=== PATIENT | female | born 1970 | race Caucasian/White ===

== ENCOUNTER 2016-08-07 13:33 | Emergency (ER) | payer OTHER ==
--- OUTSIDE RECORDS SUMMARY | 2016-08-07 14:28 | XMS REPORT | Continuity of Care Document ---
:1970 Author Organization [facility] ([facility]) Address [address] [place] [address] Phone [phone] Care Team Providers Name Role Phone Daylin Rivera Primary Care Provider [phone] Source Comments This disclosure is being made pursuant to the Care Everywhere program, applicable federal and state laws, and may not contain all informaitonavailable regarding this patient.[facility] ([facility]) Active Allergies and Adverse Reactions Allergen Noted Date Severity Reactions Comments Chlorpromazine 01/05/2009 Pruritus Morphine 01/05/2009 Pruritus Tramadol 01/05/2009 Pruritus Current Medications Prescription Sig. Disp. Refills Start Date End Date Status calcium take 1 Tab by mouth 3 Active carbonate-vitamin D times daily. (CALCIUM 500+D) 1,250 mg-200 unit per tablet escitalopram Take 40 mg by mouth at Active (LEXAPRO) 20 mg bedtime. tablet estrogens conjugated, take 1.25 mg by mouth Active synthetic, (CENESTIN) daily. 1.25 mg tablet omeprazole (PRILOSEC) take 20 mg by mouth Active 20 mg capsule daily. QUEtiapine (SEROQUEL) take 300 mg by mouth at Active 100 mg tablet bedtime. Ascorbic Acid take 1 Tab by mouth Active (VITAMIN C) 1,000 mg daily. With renetta hip Tab nabumetone (RELAFEN) Take 500 mg by mouth 2 Active 500 mg tablet times daily. Indications: Osteoarthritis QUEtiapine (SEROQUEL) Take 400 mg by mouth at Active 400 mg tablet bedtime. Chromium Picolinate Take 1 Cap by mouth Active 500 mcg Cap daily. Helps carbohydrate/fat metabolism fluticasone (FLONASE) use 1 [place] into each Active 50 mcg/Actuation nostril daily. nasal spray Indications: Allergic Rhinitis Guaifenesin (MUCUS Take 400 mg by mouth Active RELIEF) 400 mg Tab daily. Indications: Cold Symptoms benzonatate Take 100 mg by mouth 3 Active (TESSALON) 100 mg times daily as needed. capsule Carica Papaya (PAPAYA Take 1 Tab by mouth 3 Active ENZYME) Chew times daily after meals as needed. IBS treatment hydrOXYzine pamoate Take 25 mg by mouth 3 Active 25 mg capsule times daily as needed. Indications: muscle relaxant Active Problems Problem Noted Date S/P cholecystectomy 01/05/2009 Depression with anxiety 01/05/2009 Reflux esophagitis 01/05/2009 Overview: EGD 07/26/08 Bacterial overgrowth syndrome 01/05/2009 Asthma, intermittent 01/05/2009 S/P KISHAN (total abdominal hysterectomy) 01/05/2009 IBS (irritable bowel syndrome) 01/05/2009 Status post lumbar surgery 01/05/2009 Cigarette smoker 01/05/2009 Obesity 01/05/2009 Overview: BMI 30 Resolved Problems Problem Noted Date Resolved Date DENICE (obstructive sleep apnea) 01/05/2009 01/05/2009 Full dentures 01/05/2009 01/05/2009 Social History Tobacco Use Types Packs/Day Years Used Date Current Every Day Smoker Comments:no interest in quiting Alcohol Use Drinks/Week oz/Week Comments No Last Filed Vital Signs Vital Sign Reading Time Taken Blood Pressure 144/92 06/04/2010 2:03 PM CDT Pulse 80 06/04/2010 2:03 PM CDT Temperature 36.5 C (97.7 F) 01/05/2009 7:42 AM [employer] [employer] Respiratory Rate - - Height 1.64 m (5' 4.57") 06/04/2010 2:03 PM CDT Weight 84 kg (185 lb 3 oz) 06/04/2010 2:03 PM CDT Body Mass Index 31.23 06/04/2010 2:03 PM CDT Oxygen Saturation - - Plan of Care Health Maintenance Due Date Last Done Comments Hepatitis B Vaccine (1 of 3 - Primary Series) 1970 Tdap Vaccine 06/25/1983 Lipid Disorder Screening 1990 MMR Vaccine 1990 Td Vaccine 1990 Pneumococcal Vaccine (1 of 1 - PPSV23) 06/25/1991 Cervical Cancer Screening 2002 Mammogram 2012 Influenza Vaccine: Seasonal (#1) 10/01/2015 Results from Last 3 Months Not on file
--- NOTE | 2016-08-07 15:24 | ERNOTE ---
Back Pain ER HPI Date of Service: 08/07/16 Presenting Symptoms: hx chronic back pain Time Seen by Provider: 08/07/16 14:20 Source: patient Exam Limitations: no limitations Immunizations: IMMUNIZATION HX History of Influenza Vaccine No Hx Pneumococcal Vaccination No Allergies/Adverse Reactions: Allergies chlorpromazine HCl [From Thorazine] Allergy (Verified 08/07/16 13:43) morphine Allergy (Verified 08/07/16 13:43) Sulfa (Sulfonamide Antibiotics) Allergy (Verified 08/07/16 13:43) tramadol Allergy (Verified 08/07/16 13:43) Home Medications: HOME MEDICATIONS Baclofen 1 - 2 tab PO TID PRN 10/19/15 [Last Taken Unknown] Citalopram Hydrobromide [Citalopram HBr] 40 mg PO DAILY 10/19/15 [Last Taken Unknown] Dicyclomine HCl [Bentyl] 20 mg PO QID PRN 10/19/15 [Last Taken Unknown] LORazepam [Ativan] 0.5 mg PO BID PRN 10/19/15 [Last Taken Unknown] QUEtiapine FUMARATE [Seroquel] 400 mg PO HS 10/19/15 [Last Taken Unknown] HYDROcodone/ACETAMINOPHEN [[place] 5-325] 1 - 2 tab PO Q6H PRN 08/07/16 [Last Taken Unknown] predniSONE [Prednisone] See Taper PO DAILY #18 tablet 08/07/16 [Last Taken Unknown] Narrative: patient states that she fell in april and hurt her back. patient states that she does have pain medication but did not want to take it today. pain is lower back and sacral area. has not re-injured her back since her last x ray and CT unable to do MRI r/t screws in back. Date (Duration): 08/07/16 Timing: Reports: getting worse Quality/Severity: Reports: moderate, sharpness, throbbing Activities at Onset: Reports: activity Recent Injury?: Reports: no Possible Precipitating Factor: Reports: fall/near fall - 3 MONTHS AGO Modifying Factors - (Improves): Reports: nothing Modifying Factors - (Worsens): Reports: nothing Prior Treament: Reports: recently seen, treated by physician, similar symptoms before Review of Systems - Narrative Narrative: PATIENT C/O PAIN TO HER LOWER BACK FROM A PREVIOUS FALL, PAIN IS NOW MOVING DOWN HER HIP AND AROUND TO THE FRONT OF HER LEG. PATIENT STATES SHE HAS NOT TAKEN ANY PAIN MEDICATION TODAY. - Review of Systems Constitutional: Present: no symptoms reported EYE: Present: no symptoms reported ENT: Present: no symptoms reported Respiratory: Present: no symptoms reported Cardiology: Present: no symptoms reported Gastrointestinal/Abdominal: Present: no symptoms reported. Absent: nausea, vomiting, diarrhea, constipation, abdominal pain, eating less, drinking less Genitourinary: Present: no symptoms reported. Absent: dysuria, decreased urinary output Musculoskeletal: Present: See HPI, back pain Skin: Present: no symptoms reported Neurological: Present: See HPI, tingling - LEFT LEG Endocrine: Present: no symptoms reported Hematologic/Lymphatic: Present: no symptoms reported Psych: Present: no symptoms reported All Other Systems: All systems neg except as marked - Patient's Past Medical History Patient History - Medical: Bipolar, Chronic Pain, GERD, Other Patient History - Cardiac/Respiratory: No pertinent hx Patient History - Cancer: No Hx of Cancer Patient History - Surgical Procedures: Cholecystectomy, Hysterectomy Patient History - Other: None - Social History Living Situations: home Psych History: Hx of Bipolar Disorder, Hx of Psychiatric Tx, Current tx/ever been on anti-depressants or anti-anxiety meds Smoking Status: Current every day smoker Have you smoked in the past 12 months: Yes Alcohol Use: none Drug Use: none - Immunizations Hx Pneumococcal Vaccination: No History of Influenza Vaccine: No Physical Exam - Physical Exam Narrative: PATIENT IS TENDER TO LOWER BACK AND SACRAL AREA. General Appearance: Present: wd/wn, alert, no apparent distress Eye Exam: Normal inspection: bilateral Ears, Nose, Throat: Present: normal ENT inspection Neck: Present: normal inspection, nontender, full range of motion Respiratory: Present: no respiratory distress, normal breath sounds, no accessory muscle use, lungs clear Cardiovascular/Chest: Present: regular rate, rhythm, no murmur, normal peripheral pulses Peripheral Pulses: N=norm/S=strong/W=weak/B=bound/A=absent: Dorsalis-pedis (R): Normal, Dorsalis-pedis (L): Normal Gastrointestinal/Abdominal: Present: normal bowel sounds, nontender, soft Back Exam: Present: vertebral tenderness, decreased range of motion Extremity Exam: Present: normal except -, decreased range of motion, pelvis stable. Absent: pedal edema, joint swelling, extremity edema Neurological Exam: Present: alert, oriented, normal mood/affect Skin Exam: Present: normal color, warm/dry Lymphatic Exam: Present: no adenopathy ED Progress - Vital Signs Patient's Vital Signs:: I have reviewed the patient's vital signs. Vital Signs: Vital Signs 08/07/16 13:40 Temperature 37.6 C H Pulse Rate 118 H Respiratory 14 Rate Blood Pressure 141/86 O2 Sat by Pulse 97 Oximetry - Progress/Reassessment Chief Complaint: Back Pain Progress:: Improved Plan - Plan Plan: PATIENT HAS A FOLLOW UP WITH HER PCP REGARDING HER BACK ON THE . Departure Clinical Impression: Sciatic leg pain - Departure Disposition: Home Follow Up Needed Condition: Stable Instructions: Sciatica, [id number] Additional Instructions: CONTINUE any previous home medications as needed. He may take [id number] or prescribed pain medication as needed. Follow-up through primary care provider on your appointment on the . Return to the emergency room if pain is not able to be controlled. Referrals: Daylin Rivera, [facility] [Primary Care Provider] - Prescriptions: predniSONE [Prednisone] See Taper PO DAILY #18 tablet
[2016-08-07] MEDS ORDERED: METHYLPREDNISOLONE SOD SUCC/PF 40 MG/ML VIAL IM ONE (15:31)
[2016-08-07] MEDS ORDERED: METHYLPREDNISOLONE SOD SUCC/PF 40 MG/ML VIAL ONE (15:34)
[2016-08-07 15:56] VITALS: BP 139/85
== END 2016-08-07 16:00 | disposition home or self-care (01) ==
LOC: ER 13:33
DX: M54.30 Sciatica, unspecified side (principal); W19.XXXS Unspecified fall, sequela; Z72.0 Tobacco use; G89.29 Other chronic pain; K21.9 Gastro-esophageal reflux disease without esophagitis; F31.70 Bipolar disorder, currently in remission, most recent episode unspecified